=== PATIENT | female | born 1990 | race American Indian/Alaskan Native ===

== ENCOUNTER 2016-11-26 00:46 | Emergency (ER) | payer OTHER ==
[~2016-11-26] VITALS: Ht 160 cm; Wt 65.8 kg
[2016-11-26] MEDS ORDERED: BENADRYL ALLERG25 M5 PO (01:45)
[2016-11-26] MEDS ORDERED: ROBITUSSIN5 ML PO (01:45)
[2016-11-26] MEDS ORDERED: AMOXICILLIN500 M2 PO (01:45)
[2016-11-26] MEDS ORDERED: Motrin,Rufen800 MG PO (01:45)
[2016-11-26] MEDS ORDERED: ZOFRAN ODT4 MG SL (01:52)
== END 2016-11-26 02:12 | disposition home or self-care (01) ==
LOC: ED 00:46
DX: J06.9 Acute upper respiratory infection, unspecified (principal)